=== PATIENT | female | born 1945 ===

== ENCOUNTER 2023-01-07 12:05 | Outpatient (CLI) | payer OTHER | END 2023-01-07 14:30 | disposition home or self-care (01) | LOC: MAMO-SONO 12:05 | PROVIDERS: ATTEND Surgery | DX: Z12.31 Encounter for screening mammogram for malignant neoplasm of breast (principal); N60.11 Diffuse cystic mastopathy of right breast; N60.12 Diffuse cystic mastopathy of left breast ==

== ENCOUNTER 2023-01-13 10:16 | Outpatient (CLI) | payer OTHER | END 2023-01-13 10:23 | disposition home or self-care (01) | LOC: TOM 10:16 | PROVIDERS: ATTEND General Practice | DX: Z12.11 Encounter for screening for malignant neoplasm of colon (principal) ==